=== PATIENT | female | born 1950 | race American Indian/Alaskan Native ===

== ENCOUNTER 2017-11-02 11:48 | Inpatient (IN) | payer MEDICARE ==
[2017-11-02] MEDS ORDERED: DUONEB *Not for PRN Use IH ONE (12:17)
--- NOTE | 2017-11-02 12:56 | XRay Report ---
ROUTINE CHEST, TWO VIEWS: HISTORY: Shortness of breath. The trachea, heart, mediastinal contour, lung gilbert and bony thorax are unremarkable. IMPRESSION: Unremarkable chest x-ray.
[2017-11-02 12:59] LABS: Eosinophils # (Auto) 0.2 K/mm3 (0.0-0.4); Eosinophils % (Auto) 3.9 % (0.0-4.3); Hematocrit 32.6 % (30.3-42.9); Hemoglobin 10.5 gm/dl (10.1-14.3); Lymphocytes # (Auto) 1.4 K/mm3 (1.2-5.4); Lymphocytes % (Auto) 29.4 % (13.4-35.0); Mean Corpuscular HGB Conc 32 % (30-34); Mean Corpuscular Hemoglobin 28 pg (28-32); Mean Corpuscular Volume 87 fl (79-97); Monocytes # (Auto) 0.5 K/mm3 (0.0-0.8); Monocytes % (Auto) 11.1 % (0.0-7.3); Platelet Count 495 K/mm3 (140-440); Red Blood Count 3.75 M/mm3 (3.65-5.03); Red Cell Distribution Width 16.3 % (13.2-15.2)
[2017-11-02 13:12] LABS: INR 1.02 (0.87-1.13)
[2017-11-02 13:13] LABS: Partial Thromboplastin Time 33.5 Sec. (24.2-36.6)
[2017-11-02 13:15] LABS: Creatine Kinase MB 1.4 ng/mL (0.0-4.0)
[2017-11-02 13:18] LABS: BUN/Creatinine Ratio 16; Blood Urea Nitrogen 8 mg/dL (7-17); Calcium 9.6 mg/dL (8.4-10.2); Hemolysis Index 0
[2017-11-02 13:19] LABS: Albumin 3.8 g/dL (3.9-5)
[2017-11-02 13:28] LABS: Alanine Aminotransferase < 5 units/L (7-56); Bilirubin,Direct < 0.2 mg/dL (0-0.2)
[2017-11-02] MEDS ORDERED: ATROVENT IH ONE (16:56)
[2017-11-02] MEDS ORDERED: SOLU-Medrol IV ONE (16:56)
[2017-11-02] MEDS ORDERED: NACL 0.9% 250ML 250 ML IV ONE (16:56)
[2017-11-02] MEDS ORDERED: PROVENTIL IH ONE (16:56)
[2017-11-02] MEDS ORDERED: SUBLIMAZE IV ONE (16:56)
--- NOTE | 2017-11-02 16:57 | Emergency Department Report ---
ED General Adult HPI - General Chief complaint: Dyspnea/Respdistress Stated complaint: PRINCE Time Seen by Provider: 11/02/17 12:16 Source: patient, RN notes reviewed Mode of arrival: Ambulatory Limitations: No Limitations - History of Present Illness Initial comments: This is a 67-year-old female who is not known to this provider previously. Has past medical history of COPD and chronic home oxygen dependent She also reports a history of chronic musculoskeletal pain, epigastric ulcer disease, and sees a pain specialist. Patient was admitted last month for COPD exacerbation. The patient presents to ER with complaint of cough, wheezing, shortness of breath for the past 4 or 5 days. She also describes central chest pain which is also epigastric and radiates to the back. She denies vomiting and diaphoresis. She also describes intermittent weakness. She also describes chronic spinal pain. -: Gradual Location: chest, back Severity scale (0 -10): 0 Consistency: constant Improves with: medication, rest Worsens with: movement Associated Symptoms: chest pain, cough, loss of appetite, malaise, shortness of breath, weakness. denies: confusion, diaphoresis, fever/chills, headaches, nausea/vomiting, rash, syncope - Related Data Allergies Allergy/AdvReac Type Severity Reaction Status Date / Time NSAIDS (Non-Steroidal Allergy Bleeding Verified 11/02/17 11:56 Anti-Inflamma ED Review of Systems ROS: Stated complaint: PRINCE Other details as noted in HPI Constitutional: malaise. denies: fever Eyes: denies: eye discharge ENT: congestion. denies: epistaxis Respiratory: cough, shortness of breath, wheezing Cardiovascular: chest pain Gastrointestinal: denies: vomiting Genitourinary: denies: dysuria Musculoskeletal: back pain, arthralgia Skin: denies: lesions Neurological: weakness. denies: numbness, paresthesias Psychiatric: anxiety ED Past Medical Hx - Past Medical History Previous Medical History?: Yes Hx Arthritis: Yes (CHRONIC) Hx COPD: Yes - Surgical History Past Surgical History?: No - Social History Smoking Status: Current Some Day Smoker Substance Use Type: Prescribed ED Physical Exam - General Limitations: Physical Limitation General appearance: alert, in no apparent distress - Head Head exam: Present: atraumatic, normocephalic - Eye Eye exam: Present: normal appearance, EOMI. Absent: nystagmus - ENT ENT exam: Present: normal exam, normal orophraynx, mucous membranes moist - Neck Neck exam: Present: normal inspection, full ROM - Respiratory Respiratory exam: Present: respiratory distress, wheezes, rhonchi. Absent: decreased breath sounds - Cardiovascular Cardiovascular Exam: Present: regular rate, normal rhythm. Absent: systolic murmur, diastolic murmur, rubs, gallop - GI/Abdominal GI/Abdominal exam: Present: soft. Absent: distended, tenderness, guarding, rebound, rigid, pulsatile mass - Extremities Exam Extremities exam: Present: normal inspection, full ROM, normal capillary refill , other (2+ pulses noted in the bilateral upper, lower extremities. Compartments soft. No long bony tenderness. The pelvis is stable.). Absent: tenderness, pedal edema, joint swelling, calf tenderness - Back Exam Back exam: Present: normal inspection, full ROM, paraspinal tenderness, vertebral tenderness. Absent: tenderness, CVA tenderness (R) - Neurological Exam Neurological exam: Present: alert, oriented X3, CN II-XII intact, other ( Extraocular movements intact. Tongue midline. No facial droop. Facial sensation intact to light touch in the V1, V2, V3 distribution bilaterally. 5 and 5 strength in 4 extremities.. Sensation is intact to light touch in 4 extremities.). Absent: motor sensory deficit - Psychiatric Psychiatric exam: Present: anxious - Skin Skin exam: Present: warm, dry, intact, normal color. Absent: rash ED Course Vital Signs 11/02/17 11/02/17 11/02/17 11:57 12:34 14:18 Temperature 99.1 F 99.2 F Pulse Rate 89 61 Pulse Rate [ 77 Posterior Bilateral Throughout] Respiratory 32 H 15 Rate Respiratory 26 H Rate [Posterior Bilateral Throughout] Blood Pressure 152/57 136/51 O2 Sat by Pulse 93 97 Oximetry ED Medical Decision Making - Lab Data Result diagrams: 11/02/17 12:32 11/02/17 12:32 Vital Signs 11/02/17 11/02/17 11/02/17 11:57 12:34 14:18 Temperature 99.1 F 99.2 F Pulse Rate 89 61 Pulse Rate [ 77 Posterior Bilateral Throughout] Respiratory 32 H 15 Rate Respiratory 26 H Rate [Posterior Bilateral Throughout] Blood Pressure 152/57 136/51 O2 Sat by Pulse 93 97 Oximetry Lab Results 11/02/17 11/02/17 11/02/17 Range/Units 12:32 12:32 12:32 WBC 4.8 (4.5-11.0) K/mm3 RBC 3.75 (3.65-5.03) M/mm3 Hgb 10.5 (10.1-14.3) gm/dl Hct 32.6 (30.3-42.9) % MCV 87 (79-97) fl MCH 28 (28-32) pg MCHC 32 (30-34) % RDW 16.3 H (13.2-15.2) % Plt Count 495 H (140-440) K/mm3 Lymph % (Auto) 29.4 (13.4-35.0) % Crawford % (Auto) 11.1 H (0.0-7.3) % Eos % (Auto) 3.9 (0.0-4.3) % Baso % (Auto) 1.0 (0.0-1.8) % Lymph # 1.4 (1.2-5.4) K/mm3 Crawford # 0.5 (0.0-0.8) K/mm3 Eos # 0.2 (0.0-0.4) K/mm3 Baso # 0.0 (0.0-0.1) K/mm3 Seg Neutrophils % 54.6 (40.0-70.0) % Seg Neutrophils # 2.6 (1.8-7.7) K/mm3 PT 13.9 (12.2-14.9) Sec. INR 1.02 (0.87-1.13) APTT 33.5 (24.2-36.6) Sec. Sodium 135 L (137-145) mmol/L Potassium 4.6 (3.6-5.0) mmol/L Chloride 93.7 L (98-107) mmol/L Carbon Dioxide 30 (22-30) mmol/L Anion Gap 16 mmol/L BUN 8 (7-17) mg/dL Creatinine 0.5 L (0.7-1.2) mg/dL Estimated GFR > 60 ml/min BUN/Creatinine Ratio 16 % Glucose 108 H (65-100) mg/dL Calcium 9.6 (8.4-10.2) mg/dL Total Bilirubin (0.1-1.2) mg/dL Direct Bilirubin (0-0.2) mg/dL Indirect Bilirubin mg/dL AST (5-40) units/L ALT (7-56) units/L Alkaline Phosphatase (35-129) units/L Total Creatine Kinase (30-135) units/L CK-MB (CK-2) (0.0-4.0) ng/mL CK-MB (CK-2) Rel Index (0-4) Troponin T < 0.010 (0.00-0.029) ng/mL NT-Pro-B Natriuret Pep (0-900) pg/mL Total Protein (6.3-8.2) g/dL Albumin (3.9-5) g/dL Albumin/Globulin Ratio % 11/02/17 Range/Units 12:32 WBC (4.5-11.0) K/mm3 RBC (3.65-5.03) M/mm3 Hgb (10.1-14.3) gm/dl Hct (30.3-42.9) % MCV (79-97) fl MCH (28-32) pg MCHC (30-34) % RDW (13.2-15.2) % Plt Count (140-440) K/mm3 Lymph % (Auto) (13.4-35.0) % Crawford % (Auto) (0.0-7.3) % Eos % (Auto) (0.0-4.3) % Baso % (Auto) (0.0-1.8) % Lymph # (1.2-5.4) K/mm3 Crawford # (0.0-0.8) K/mm3 Eos # (0.0-0.4) K/mm3 Baso # (0.0-0.1) K/mm3 Seg Neutrophils % (40.0-70.0) % Seg Neutrophils # (1.8-7.7) K/mm3 PT (12.2-14.9) Sec. INR (0.87-1.13) APTT (24.2-36.6) Sec. Sodium (137-145) mmol/L Potassium (3.6-5.0) mmol/L Chloride (98-107) mmol/L Carbon Dioxide (22-30) mmol/L Anion Gap mmol/L BUN (7-17) mg/dL Creatinine (0.7-1.2) mg/dL Estimated GFR ml/min BUN/Creatinine Ratio % Glucose (65-100) mg/dL Calcium (8.4-10.2) mg/dL Total Bilirubin 0.20 (0.1-1.2) mg/dL Direct Bilirubin < 0.2 (0-0.2) mg/dL Indirect Bilirubin 0.0 mg/dL AST 12 (5-40) units/L ALT < 5 L (7-56) units/L Alkaline Phosphatase 56 (35-129) units/L Total Creatine Kinase 34 (30-135) units/L CK-MB (CK-2) 1.4 (0.0-4.0) ng/mL CK-MB (CK-2) Rel Index 4.1 H (0-4) Troponin T < 0.010 (0.00-0.029) ng/mL NT-Pro-B Natriuret Pep 288.3 (0-900) pg/mL Total Protein 7.8 (6.3-8.2) g/dL Albumin 3.8 L (3.9-5) g/dL Albumin/Globulin Ratio 1.0 % - EKG Data -: EKG Interpreted by Ar EKG shows normal: sinus rhythm Rate: normal - EKG Data When compared to previous EKG there are: previous EKG unavailable Interpretation: LVH 11/02/17 17:10 Sinus, 73 beats minute, normal axis, QTC prolonged, high left ventricular voltage, left ventricular hypertrophy, abnormal EKG, not a stemi - Radiology Data Radiology results: report reviewed, image reviewed X-ray of the chest is negative for acute disease - Medical Decision Making Differential diagnosis, including but not limited to: GERD, gastritis, hiatal hernia, pneumonia, COPD, acute coronary syndrome, pulmonary embolus, chronic muscular skeletal spinal pain Assessment and plan: 67-year-old female with cough, wheezing, shortness of breath, chest pain and reproducible chronic back pain. Highly suspect COPD exacerbation. She'll be treated accordingly for COPD exacerbation. Low risk by well's criteria but given her recent hospitalization, we will risk stratify with a d-dimer. Does not have physical exam evidence in her lower extremities to suggest a DVT. She will be given fentanyl for pain. Hospital physician, Dr. Gallagher has agreed to that the patient for COPD exacerbation and cardiac risk stratification. Critical care attestation.: If time is entered above; I have spent that time in minutes in the direct care of this critically ill patient, excluding procedure time. ED Disposition Clinical Impression: COPD exacerbation, Chest pain, Chronic back pain Disposition: [id number] OP ADMIT IP TO THIS HOSP Is pt being admited?: Yes Does the pt Need Aspirin: Yes Condition: Good Instructions: Chronic Obstructive Pulmonary Disease (ED), Chest Pain (ED) Referrals: PRIMARY CARE, [Primary Care Provider] - 3-5 Days
[2017-11-02] MEDS ORDERED: MAGNESIUM SULFATE 2GM/50ML 2 GM/50 ML BAG IV ONE (17:00)
--- NOTE | 2017-11-02 17:08 | History and Physical Report ---
History of Present Illness Chief complaint: I cant breathe History of present illness: 67 YO Female with COPD, Nicotine Dependence, Chronic Respiratory Failure on Home Oxygen, OA, PUD, Chronic Pain presents to ED for evaluation. Pt states that she has experienced shortness of breath, productive cough with increased sputum production over the past 5 days with worsening symptoms over the same time frame. Pt states that she has coughing episodes that are followed by chest wall pain. Pt denies chest pain at time of my exam. Pt denies fever, chills, CP , Palpitations, NVD, Syncope, Trauma, BRBPR, Diaphoresis, Skin rash, or recent ill contacts. Pt seen and evaluated in ED and found to have Acute Respiratory Failure complicated by COPD Exacerbation. Pt admitted to medical floor. Past History Past Medical History: COPD Past Surgical History: No surgical history, Other (reviewed) Social history: , smoking. denies: alcohol abuse, prescription drug abuse Family history: hypertension Medications and Allergies Allergies Allergy/AdvReac Type Severity Reaction Status Date / Time NSAIDS (Non-Steroidal Allergy Bleeding Verified 11/02/17 11:56 Anti-Inflamma Active Meds: Active Medications Magnesium Sulfate (Magnesium Sulfate 2gm/50ml) 2 gm in 50 mls @ 100 mls/hr IV ONCE ONE Stop: 11/02/17 17:29 Sodium Chloride (Nacl 0.9% 250ml) 250 mls @ 999 mls/hr IV ONCE ONE Stop: 11/02/17 17:11 Review of Systems Constitutional: no weight loss, no weight gain, no fever, no chills Ears, nose, mouth and throat: no ear pain, no ear discharge, no tinnitis, no decreased hearing, no nose pain, no nasal congestion Breasts: no change in shape, no swelling, no mass Cardiovascular: no chest pain, no orthopnea, no palpitations, no rapid/ irregular heart beat, no edema, no syncope Respiratory: cough, cough with sputum, excessive sputum, shortness of breath Gastrointestinal: no abdominal pain, no nausea, no vomiting, no diarrhea Genitourinary Female: no pelvic pain, no flank pain, no menorrhagia, no dysuria , no urinary frequency, no urgency Rectal: no pain, no incontinence, no bleeding Musculoskeletal: no neck stiffness, no neck pain, no shooting arm pain, no arm numbness/tingling Integumentary: no rash, no pruritis, no redness, no sores, no wounds Neurological: no transient paralysis, no paralysis, no weakness, no parathesias , no numbness, no tingling, no seizures, no syncope, no tremors Psychiatric: no anxiety, no memory loss, no change in sleep habits, no sleep disturbances, no insomnia, no hypersomnia, no change in appetite, no change in libido Endocrine: no cold intolerance, no heat intolerance, no polyphagia, no excessive thirst, no polydipsia, no polyuria, no nocturia, no excessive sweating Hematologic/Lymphatic: no easy bruising, no easy bleeding, no lymphadenopathy, no lymphedema Allergic/Immunologic: no urticaria, no allergic rhinitis, no wheezing, no persistent infections, no anaphylaxis, no angioedema Exam - Constitutional Vitals: Temp Pulse Resp BP Pulse Ox 99.2 F 61 15 136/51 97 11/02/17 14:18 11/02/17 14:18 11/02/17 14:18 11/02/17 14:18 11/02/17 14:18 General appearance: Present: mild distress - EENT Eyes: Present: PERRL ENT: hearing intact, clear oral mucosa - Neck Neck: Present: supple, normal ROM - Respiratory Respiratory effort: normal Respiratory: bilateral: diminished, rhonchi - Cardiovascular Heart Sounds: Present: S1 & S2. Absent: rub, click - Extremities Extremities: pulses symmetrical, No edema Peripheral Pulses: within normal limits - Abdominal General gastrointestinal: Present: soft, non-tender, non-distended, normal bowel sounds Female genitourinary: Present: normal - Integumentary Integumentary: Present: clear, warm, dry - Musculoskeletal Musculoskeletal: gait normal, strength equal bilaterally - Psychiatric Psychiatric: appropriate mood/affect, intact judgment & insight - Neurologic Neurologic: CNII-XII intact, moves all extremities Results - Labs CBC & Chem 7: 11/02/17 12:32 11/02/17 12:32 Labs: Abnormal lab results 11/02/17 11/02/17 11/02/17 Range/Units 12:32 12:32 12:32 RDW 16.3 H (13.2-15.2) % Plt Count 495 H (140-440) K/mm3 Towner % (Auto) 11.1 H (0.0-7.3) % Sodium 135 L (137-145) mmol/L Chloride 93.7 L (98-107) mmol/L Creatinine 0.5 L (0.7-1.2) mg/dL Glucose 108 H (65-100) mg/dL ALT < 5 L (7-56) units/L CK-MB (CK-2) Rel Index 4.1 H (0-4) Albumin 3.8 L (3.9-5) g/dL Assessment and Plan - Patient Problems (1) Respiratory failure Current Visit: Yes Status: Acute Qualifiers: Chronicity: acute Respiratory failure complication: hypoxia Qualified Code(s): J96.01 - Acute respiratory failure with hypoxia Plan to address problem: Supplemental oxygen, nebulizer therapy, NIPPV as clinically indicated, Chest X ray, pulse oximetry. (2) Nicotine dependence unspecified, with withdrawal Current Visit: Yes Status: Acute Qualifiers: Nicotine product type: cigarettes Qualified Code(s): F17.213 - Nicotine dependence, cigarettes, with withdrawal Plan to address problem: Smoking cessation counseling, supportive care. (3) COPD exacerbation Current Visit: Yes Status: Acute Plan to address problem: IV antibiotics, IV steroid therapy, supplemental oxygen, chest x ray, CBC, CMP, D dimer, BNP (4) Chronic back pain Current Visit: Yes Status: Acute Qualifiers: Back pain laterality: unspecified Plan to address problem: Pain control, resume home medication. (5) DVT prophylaxis Current Visit: Yes Status: Acute Plan to address problem: SCD to BLE while in bed.
[2017-11-02] MEDS ORDERED: BABY ASPIRIN PO ONE (17:13)
[2017-11-02] MEDS ORDERED: CARAFATE PO ONE (17:13)
[2017-11-02] MEDS ORDERED: NITROSTAT SL PRN (17:13)
[2017-11-02] MEDS ORDERED: PEPCID IV ONE (17:13)
[2017-11-02] MEDS ORDERED: TYLENOL PO PRN (17:55)
[2017-11-02] MEDS ORDERED: ZOFRAN IV PRN (17:55)
[2017-11-02] MEDS ORDERED: SODIUM CHLORIDE FLUSH SYRINGE 10 ML IV PRN (17:55)
[2017-11-02] MEDS ORDERED: PROVENTIL IH PRN (17:55)
[2017-11-02] MEDS ORDERED: PERCOCET 5/325 PO ONE (22:24)
[2017-11-02] MEDS ORDERED: ROXICODONE PO ONE (22:29)
[2017-11-02] MEDS: SOLU-Medrol IV SCH (22:43)
[2017-11-02] MEDS: PEPCID PO SCH (22:44)
[2017-11-02] MEDS: SODIUM CHLORIDE FLUSH SYRINGE 10 ML IV SCH (22:45)
[2017-11-03] MEDS ORDERED: ROXICODONE PO PRN ×2 (08:37→17:16)
[2017-11-03] MEDS ORDERED: PERCOCET 5/325 PO ONE ×2 (08:40→09:30)
--- NOTE | 2017-11-03 08:45 | Progress Note ---
Assessment and Plan Assessment and plan: --Acute Respiratory failure; secondary to acute exacerbation COPD Oxygen titrate O2 sats more than 90%. Nebulizers IV steroids, IV antibiotics, inhalation Steroids,supportive care --Acute exacerbation COPD; Continue nebulizers, tapering dose of IV steroids, IV antibiotics Supportive care --Chronic pain syndrome: Pain management, supportive care --DVT prophylaxis: lovenox Closely monitor the patient and adjust management as needed Plan of care Reviewed with the patient and her nurse Possible discharge in 1-2 days if stable History Interval history: Patient seen and examined medical records reviewed Patient feels slightly better Complaints of generalized body pains Patient follows with pain management on multiple pain medications Alert awake oriented 3 Vital signs reviewed Hospitalist Physical - Constitutional Vitals: Temp Pulse Resp BP Pulse Ox 97.8 F 52 L 16 142/58 98 11/03/17 03:00 11/03/17 03:00 11/03/17 03:00 11/03/17 03:00 11/03/17 03:00 General appearance: Present: no acute distress, well-nourished - EENT Eyes: Present: PERRL, EOM intact - Neck Neck: Present: supple, normal ROM - Respiratory Respiratory effort: normal Respiratory: bilateral: diminished, wheezing, negative: rales, rhonchi - Cardiovascular Rhythm: regular Heart Sounds: Present: S1 & S2 - Extremities Extremities: no ischemia, No edema - Abdominal General gastrointestinal: soft, non-tender, non-distended, normal bowel sounds - Integumentary Integumentary: Present: clear, warm - Psychiatric Psychiatric: appropriate mood/affect, cooperative - Neurologic Neurologic: CNII-XII intact, moves all extremities Results - Labs CBC & Chem 7: 11/02/17 12:32 11/02/17 12:32 Labs: Laboratory Last Values WBC 4.8 K/mm3 (4.5-11.0) 11/02/17 12:32 RBC 3.75 M/mm3 (3.65-5.03) 11/02/17 12:32 Hgb 10.5 gm/dl (10.1-14.3) 11/02/17 12:32 Hct 32.6 % (30.3-42.9) 11/02/17 12:32 MCV 87 fl (79-97) 11/02/17 12:32 MCH 28 pg (28-32) 11/02/17 12:32 MCHC 32 % (30-34) 11/02/17 12:32 RDW 16.3 % (13.2-15.2) H 11/02/17 12:32 Plt Count 495 K/mm3 (140-440) H 11/02/17 12:32 Lymph % (Auto) 29.4 % (13.4-35.0) 11/02/17 12:32 Towner % (Auto) 11.1 % (0.0-7.3) H 11/02/17 12:32 Eos % (Auto) 3.9 % (0.0-4.3) 11/02/17 12:32 Baso % (Auto) 1.0 % (0.0-1.8) 11/02/17 12: Lymph # 1.4 K/mm3 (1.2-5.4) 11/02/17 12:32 Towner # 0.5 K/mm3 (0.0-0.8) 11/02/17 12:32 Eos # 0.2 K/mm3 (0.0-0.4) 11/02/17 12:32 Baso # 0.0 K/mm3 (0.0-0.1) 11/02/17 12:32 Seg Neutrophils % 54.6 % (40.0-70.0) 11/02/17 12: Seg Neutrophils # 2.6 K/mm3 (1.8-7.7) 11/02/17 12:32 PT 13.9 Sec. (12.2-14.9) 11/02/17 12:32 INR 1.02 (0.87-1.13) 11/02/17 12:32 APTT 33.5 Sec. (24.2-36.6) 11/02/17 12:32 D-Dimer 210.84 ng/mlDDU (0-234) 11/02/17 17:25 Sodium 135 mmol/L (137-145) L 11/02/17 12:32 Potassium 4.6 mmol/L (3.6-5.0) 11/02/17 12:32 Chloride 93.7 mmol/L (98-107) L 11/02/17 12:32 Carbon Dioxide 30 mmol/L (22-30) 11/02/17 12:32 Anion Gap 16 mmol/L 11/02/17 12:32 BUN 8 mg/dL (7-17) 11/02/17 12:32 Creatinine 0.5 mg/dL (0.7-1.2) L 11/02/17 12:32 Estimated GFR > 60 ml/min 11/02/17 12:32 BUN/Creatinine Ratio 16 % 11/02/17 12:32 Glucose 108 mg/dL (65-100) H 11/02/17 12:32 Calcium 9.6 mg/dL (8.4-10.2) 11/02/17 12:32 Total Bilirubin 0.20 mg/dL (0.1-1.2) 11/02/17 12:32 Direct Bilirubin < 0.2 mg/dL (0-0.2) 11/02/17 12:32 Indirect Bilirubin 0.0 mg/dL 11/02/17 12:32 AST 12 units/L (5-40) 11/02/17 12:32 ALT < 5 units/L (7-56) L 11/02/17 12:32 Alkaline Phosphatase 56 units/L (35-129) 11/02/17 12:32 Total Creatine Kinase 34 units/L (30-135) 11/02/17 12:32 CK-MB (CK-2) 1.4 ng/mL (0.0-4.0) 11/02/17 12:32 CK-MB (CK-2) Rel Index 4.1 (0-4) H 11/02/17 12:32 Troponin T < 0.010 ng/mL (0.00-0.029) 11/02/17 12:32 NT-Pro-B Natriuret Pep 288.3 pg/mL (0-900) 11/02/17 12:32 Total Protein 7.8 g/dL (6.3-8.2) 11/02/17 12:32 Albumin 3.8 g/dL (3.9-5) L 11/02/17 12:32 Albumin/Globulin Ratio 1.0 % 11/02/17 12:32
[2017-11-03] MEDS: PEPCID PO SCH ×2 (09:08→21:55)
[2017-11-03] MEDS: SOLU-Medrol IV SCH ×2 (09:08→21:52)
[2017-11-03] MEDS: SODIUM CHLORIDE FLUSH SYRINGE 10 ML IV SCH ×2 (09:08→22:20)
[2017-11-03] MEDS ORDERED: ROXICODONE PO ONE (09:30)
[2017-11-03] MEDS ORDERED: ZITHROMAX 500 MG in NACL 0.9% 250ML 250 ML IV SCH (10:00)
[2017-11-03] MEDS: DUONEB *Not for PRN Use IH SCH ×2 (13:59→20:40)
[2017-11-03] MEDS: BROVANA NEBU IH SCH ×2 (14:05→20:40)
[2017-11-03] MEDS: PERCOCET 5/325 PO SCH ×2 (15:11→21:55)
[2017-11-03] MEDS: ROXICODONE PO SCH ×2 (15:12→21:53)
[2017-11-03] MEDS ORDERED: AMBIEN PO PRN (17:16)
[2017-11-03] MEDS ORDERED: PERCOCET 5/325 PO PRN (17:16)
[2017-11-03] MEDS: LYRICA PO SCH (21:54)
[2017-11-04] MEDS: ROXICODONE PO SCH ×2 (05:42→11:38)
[2017-11-04] MEDS: PERCOCET 5/325 PO SCH ×2 (05:43→11:37)
[2017-11-04 06:51] LABS: Basophils # (Auto) 0.1 K/mm3 (0.0-0.1); Basophils % (Auto) 0.5 % (0.0-1.8); Hematocrit 34.7 % (30.3-42.9); Hemoglobin 10.8 gm/dl (10.1-14.3); Lymphocytes # (Auto) 1.1 K/mm3 (1.2-5.4); Lymphocytes % (Auto) 10.2 % (13.4-35.0); Mean Corpuscular HGB Conc 31 % (30-34); Mean Corpuscular Hemoglobin 28 pg (28-32); Mean Corpuscular Volume 88 fl (79-97); Monocytes # (Auto) 0.5 K/mm3 (0.0-0.8); Monocytes % (Auto) 4.9 % (0.0-7.3); Platelet Count 519 K/mm3 (140-440); Red Blood Count 3.93 M/mm3 (3.65-5.03); Red Cell Distribution Width 16.4 % (13.2-15.2)
[2017-11-04 07:12] LABS: BUN/Creatinine Ratio 34; Blood Urea Nitrogen 17 mg/dL (7-17); Calcium 9.6 mg/dL (8.4-10.2); Hemolysis Index 2
[2017-11-04 08:10] VITALS: BP 133/55
[2017-11-04] MEDS ORDERED: XANAX PO PRN (08:32)
[2017-11-04] MEDS: LYRICA PO SCH (08:58)
[2017-11-04] MEDS: SOLU-Medrol IV SCH (08:59)
[2017-11-04] MEDS: PEPCID PO SCH (09:29)
[2017-11-04] MEDS ORDERED: ZITHROMAX PO SCH (10:00)
[2017-11-04] MEDS: BROVANA NEBU IH SCH (10:32)
[2017-11-04] MEDS: DUONEB *Not for PRN Use IH SCH ×2 (10:32→14:55)
[2017-11-04] MEDS: SODIUM CHLORIDE FLUSH SYRINGE 10 ML IV SCH (11:20)
--- NOTE | 2017-11-04 12:53 | Discharge Summary ---
Providers - Providers Date of Admission: 11/02/17 17:55 Date of discharge: 11/04/17 Attending physician: KENRICK WOODARD Primary care physician: [facility] [employer] [employer] Hospitalization Condition: Good Disposition: DC-01 TO HOME OR SELFCARE Time spent for discharge: 32 min Core Measure Documentation - Palliative Care Palliative Care/ Comfort Measures: Not Applicable - Core Measures Any of the following diagnoses?: none Exam - Constitutional Vitals: Temp Pulse Resp BP Pulse Ox 98.5 F 67 20 133/55 97 11/04/17 07:20 11/04/17 10:48 11/04/17 10:48 11/04/17 07:20 11/04/17 10:37 General appearance: Present: no acute distress, well-nourished - EENT Eyes: Present: PERRL, EOM intact - Neck Neck: Present: supple, normal ROM - Respiratory Respiratory effort: normal Respiratory: bilateral: diminished, negative: rales, rhonchi, wheezing - Cardiovascular Rhythm: regular Heart Sounds: Present: S1 & S2 - Extremities Extremities: no ischemia, No edema Peripheral Pulses: within normal limits - Abdominal General gastrointestinal: Present: soft, non-tender, non-distended, normal bowel sounds - Integumentary Integumentary: Present: clear, warm - Musculoskeletal Musculoskeletal: strength equal bilaterally - Psychiatric Psychiatric: appropriate mood/affect, cooperative - Neurologic Neurologic: CNII-XII intact, moves all extremities Plan Activity: advance as tolerated Diet: regular Additional Instructions: Advised to continue home oxygen as before. Advised to continue nebulizers as before. Follow pain management per schedule. If you have chest pain or shortness of breath contact M.D. or go to emergency room Follow up with: YAW GLEASON MD [Primary Care Provider] - 3-5 Days NICOLE BISHOP MD [Staff Physician] - 7 Days Prescriptions: ALBUTEROL Inhaler(NF) [VENTOLIN Inhaler(NF)] 1 puff IH QID PRN #1 inha PRN Reason: Shortness Of Breath ALPRAZolam [Xanax TAB] 0.25 mg PO Q12H PRN #8 tablet PRN Reason: Anxiety Azithromycin [Zithromax Z-AUSTIN] 0 mg PO DAILY #1 tab Famotidine [Pepcid] 20 mg PO BID #20 tablet Prednisone [predniSONE 10 mg (6-Day Pack, 21 Tabs)] 10 mg PO .TAPER #1 tab.ds.pk
== END 2017-11-04 14:58 | disposition home or self-care (01) | DRG 189 ==
LOC: ED 11:48 → 2B-ACE 17:55
PROVIDERS: ADMIT Internal Medicine; ATTEND Internal Medicine
DX: J96.21 Acute and chronic respiratory failure with hypoxia (principal); J44.1 Chronic obstructive pulmonary disease with (acute) exacerbation; F17.213 Nicotine dependence, cigarettes, with withdrawal; M19.90 Unspecified osteoarthritis, unspecified site; G89.4 Chronic pain syndrome; M54.9 Dorsalgia, unspecified; Z99.81 Dependence on supplemental oxygen; Z87.11 Personal history of peptic ulcer disease; Z82.49 Family history of ischemic heart disease and other diseases of the circulatory system; Z71.6 Tobacco abuse counseling
CPT/HCPCS: 36415; 71046; 80048; 80074; 82550; 82553; 83880; 84484; 85025; 85379; 85610; 85730; 93005; 93010; 94640; 94644; 94760; 96365; 96375; J0456; J2405; J2920; J2930; J3010; J3475; J7050